=== PATIENT | female | born 1990 | race Caucasian/White ===

== ENCOUNTER 2020-05-25 10:46 | Observation (INO) ==
[2020-05-25 11:48] LABS: Basophils # 0.1 10*3/uL (0.0-0.2); Basophils % 1.1 % (0.0-0.8); Eosinophils # 0.2 10*3/uL (0.0-0.87); Eosinophils % 2.7 % (0.00-10.9); Hematocrit 40.8 VOL% (35.7-47.0); Hemoglobin 13.6 GM/DL (12.0-16.0); Immature Granulocytes % 0.1 %; Immature Granulocytes Absolute 0.01 #; Lymphocytes # 2.4 10*3/uL (1.4-4.0); Lymphocytes % 33.8 % (21.3-54.2); Mean Corpuscular HGB Conc 33.3 GM/DL (32-36); Mean Corpuscular Volume 90.5 FL (87-102); Mean Platelet Volume 11.8 FL (9.6-12.0); Monocytes % 6.2 % (1.7-12.7); Neutrophils % 56.1 % (38.7-73.9); Platelet Count 224 T/CUMM (130-400); Red Blood Count 4.51 MC/CUMM (3.8-5.5); Red Cell Distribution Width 13.1 % (9.3-17.3); White Blood Count 7.1 T/CUMM (4-12)
[2020-05-25 12:19] LABS: Bacteria,Urine Moderate /HPF (Few); Bilirubin,Urine Negative (Negative); Blood, Urine Negative (Negative); Glucose,Urine (UA) Negative (Negative); Ketones,Urine Negative (Negative); Nitrite,Urine Negative (Negative); Protein,Urine Negative; RBC,Urine 2 /HPF (0-4); Squamous Epithelial Cell,Urine Occasional /HPF (0-10); Urine Appearance CLEAR (Clear); Urine Color Yellow (Yellow); Urine Specific Gravity 1.014 (1.001-1.035); Urine Urobilinogen < 2.0 EU/DL (0.2-1.0); WBC,Urine 1 /HPF (0-6)
[2020-05-25 12:53] LABS: Albumin 4.3 G/DL (3.4-5.0); Bilirubin,Total 0.4 MG/DL (0.2-1.0); Calcium 8.8 MG/DL (8.5-10.1); Osmolality,Calculated 272.7 MOS/KG (273-304); Total Protein 7.8 G/DL (6.4-8.3)
[2020-05-25] MEDS ORDERED: ACETAMINOPHEN 325 MG TABLET PO PRN (15:26)
[2020-05-25] MEDS ORDERED: HYDROmorphone 2 MG/1 ML VIAL IV PRN (15:26)
[2020-05-25] MEDS ORDERED: BISACODYL 5 MG TABLET PO PRN (15:26)
[2020-05-25] MEDS ORDERED: KETOROLAC 15 MG/1 ML VIAL IV PRN (15:26)
[2020-05-25] MEDS ORDERED: ONDANSETRON 4 MG/2 ML VIAL IV PRN (15:26)
[2020-05-25] MEDS: LACTATED RINGERS 1,000 ML IV SCH (16:40)
[2020-05-26] MEDS: LACTATED RINGERS 1,000 ML IV SCH ×3 (01:32→12:57)
[2020-05-26] MEDS ORDERED: cefOXitin 2,000 MG in SYRINGE 1 EACH IV ONE ×2 (08:00→10:30)
[2020-05-26] MEDS ORDERED: RIZATRIPTAN ODT 5 MG TABLET PO PRN (08:23)
[2020-05-26] MEDS ORDERED: DIAZEPAM 5 MG TABLET PO ONE (08:30)
[2020-05-26] MEDS ORDERED: PROCHLORPERAZINE 5 MG TABLET PO SCH (09:00)
[2020-05-26] MEDS ORDERED: PROCHLORPERAZINE 5 MG TABLET PO PRN (09:30)
[2020-05-26] MEDS: BACLOFEN 10 MG TABLET PO SCH ×2 (10:13→21:20)
[2020-05-26] MEDS: MECLIZINE 25 MG TABLET PO SCH ×3 (10:13→21:20)
[2020-05-26] MEDS: DULoxetine 30 MG CAPSULE PO SCH (10:13)
[2020-05-26] MEDS: DICYCLOMINE 10 MG CAPSULE PO SCH ×4 (10:13→21:20)
[2020-05-26] MEDS: GABAPENTIN 100 MG CAPSULE PO SCH ×3 (10:14→21:20)
[2020-05-26] MEDS: PANTOPRAZOLE 40 MG TABLET PO SCH (10:14)
[2020-05-26] MEDS ORDERED: fentaNYL 100 MCG/2 ML VIAL ONE ×2 (10:38→11:56)
[2020-05-26] MEDS ORDERED: MIDAZOLAM 2 MG/2 ML VIAL ONE (10:39)
[2020-05-26] MEDS ORDERED: BUPIVACAINE MPF 0.25% 30 ML VIAL ONE (10:57)
[2020-05-26] MEDS ORDERED: LIDOCAINE 1%/EPI INJ 20 ML VIAL ONE (10:57)
[2020-05-26] MEDS ORDERED: TISSUE ADHESIVE 1 EACH APPLICATOR TOP ONE (12:08)
[2020-05-26] MEDS ORDERED: ONDANSETRON 4 MG/2 ML VIAL IV PRN (12:36)
[2020-05-26] MEDS ORDERED: PROMETHAZINE INJ 25 MG in SODIUM CHLORIDE 0.9% 50 ML IV PRN (12:36)
[2020-05-26] MEDS ORDERED: diphenhydrAMINE 50 MG/1 ML VIAL IV PRN (12:36)
[2020-05-26] MEDS ORDERED: HYDROmorphone 2 MG/1 ML VIAL IV PRN (12:36)
[2020-05-26] MEDS: MEPERIDINE 25 MG/1 ML VIAL IV PRN ×2 (12:50→13:10)
[2020-05-26] MEDS ORDERED: GLYCOPYRROLATE 0.4 MG/2 ML VIAL ONE (12:53)
[2020-05-26] MEDS ORDERED: LIDOCAINE 2% 5 ML VIAL ONE (12:53)
[2020-05-26] MEDS ORDERED: DEXAMETHASONE 4 MG/1 ML VIAL ONE (12:53)
[2020-05-26] MEDS ORDERED: ONDANSETRON 4 MG/2 ML VIAL ONE (12:53)
[2020-05-26] MEDS ORDERED: NEOSTIGMINE 10 MG/10 ML VIAL ONE (12:53)
[2020-05-26] MEDS ORDERED: PHENYLEPHRINE 1 MG/10 ML SYRINGE IV ONE (12:53)
[2020-05-26] MEDS ORDERED: ROCURONIUM 50 MG/5 ML VIAL IV ONE (12:53)
[2020-05-26] MEDS ORDERED: propofoL 200 MG/20 ML VIAL IV ONE (12:53)
[2020-05-26] MEDS ORDERED: SEVOFLURANE 1 UNIT/15 MINUTE INH ONE (12:53)
[2020-05-26] MEDS ORDERED: PROMETHAZINE 25 MG/1 ML VIAL ONE (13:03)
[2020-05-27] MEDS: LACTATED RINGERS 1,000 ML IV SCH (03:37)
[2020-05-27 07:42] VITALS: BP 112/65
[2020-05-27] MEDS: GABAPENTIN 100 MG CAPSULE PO SCH (09:19)
[2020-05-27] MEDS: PANTOPRAZOLE 40 MG TABLET PO SCH (09:19)
[2020-05-27] MEDS: DULoxetine 30 MG CAPSULE PO SCH (09:20)
[2020-05-27] MEDS: MECLIZINE 25 MG TABLET PO SCH (09:20)
[2020-05-27] MEDS: DICYCLOMINE 10 MG CAPSULE PO SCH (09:20)
[2020-05-27] MEDS: BACLOFEN 10 MG TABLET PO SCH (09:20)
== END 2020-05-27 11:45 | disposition home or self-care (01) ==
LOC: N.EDINP 10:46 → N.ED 10:46 → N.3E 16:44
PROVIDERS: ADMIT Surgery; ATTEND Surgery